=== PATIENT | male | born 1960 | race Caucasian/White ===

== ENCOUNTER 2020-01-10 15:05 | Emergency (ER) | payer BC ==
[~2020-01-10] VITALS: Ht 182.9 cm; Wt 70.3 kg
--- NOTE | 2020-01-10 15:15 | NUR ---
pt BIBRA from urgent care due syncopal episode after getting morphine and TDAP for s/p left hand laceration from razor. pt alert and oriented x4. able follow directions. no c/o pain or discomfort at this time. no respiratory derpression. awiating for MD cobos
--- NOTE | 2020-01-10 15:24 | NUR ---
iv line establsihed. blood drawn and sent to lab
[2020-01-10] MEDS ORDERED: IV NS 0.9% 1,000 ML BAG IV ONE (15:30)
[2020-01-10 15:43] LABS: BASOPHILS % (AUTO) 0.6 % (0.0-2.0); EOSINOPHILS % (AUTO) 0.7 % (0.0-6.0); HEMATOCRIT 39 % (39-51); HEMOGLOBIN 12.8 g/dL (13.5-17.5); LYMPHOCYTES # (AUTO) 3.1 /CMM (0.8-4.8); LYMPHOCYTES % (AUTO) 43.3 % (20.0-44.0); MEAN CORPUSCULAR HGB CONC 33 g/dl (31.0-36.0); MEAN CORPUSCULAR VOLUME 94 fL (80-96); MONOCYTES # (AUTO) 0.4 /CMM (0.1-1.30); MONOCYTES % (AUTO) 6.1 % (2.0-12.0); NEUTROPHILS # (AUTO) 3.6 /CMM (1.8-8.9); NEUTROPHILS % (AUTO) 49.3 % (43.0-81.0); PLATELET COUNT (AUTO) 292 /CMM (150-450); WHITE BLOOD COUNT (AUTO) 7.3 K/uL (4.3-11.0)
[2020-01-10] MEDS ORDERED: ATOR10TA PO (15:48)
[2020-01-10 16:02] LABS: CALCIUM, SERUM 8.9 mg/dL (8.5-10.1); CARBON DIOXIDE 22 mmol/L (21-32); CHLORIDE 102 mmol/L (98-107); GLUCOSE 142 mg/dL (74-106); POTASSIUM 3.4 mmol/L (3.5-5.1); SODIUM SERUM 139 mmol/L (136-145); UREA NITROGEN, BLOOD 16 mg/dL (7-18)
[2020-01-10] MEDS ORDERED: GELATIN SPONGE,ABSORBABLE 1 SPONGE SPONGE TP ONE (16:04)
[2020-01-10] MEDS ORDERED: ONDANSETRON HCL/PF 4 MG/2 ML VIAL ONE (16:24)
[2020-01-10] MEDS ORDERED: ONDANSETRON HCL/PF - ER 4 MG/2 ML VIAL IV ONE (16:30)
[2020-01-10 16:43] VITALS: BP 120/72
== END 2020-01-10 16:43 | disposition home or self-care (01) ==
LOC: ER 15:20
DX: R55 Syncope and collapse (principal); R42 Dizziness and giddiness; R00.1 Bradycardia, unspecified; Z79.899 Other long term (current) drug therapy
CPT/HCPCS: 36415; 71045; 80048; 84484; 85025; 93005 ×2; 96361; 96374; 99285; J2405 ×2; J7030